=== PATIENT | female | born 1945 | race Caucasian/White ===

== ENCOUNTER 2018-07-05 17:21 | Emergency (ER) | payer SELFPAY ==
[2018-07-05 18:15] LABS: BASO % 0.5 % (0.0-2.0); EOS # 0.2 K/uL (0.0-0.7); EOS % 2.9 % (0.0-4.0); HEMOGLOBIN 11.4 g/dL (11.0-16.0); LYMPH # 1.1 K/uL (1.0-4.3); LYMPH % 19.8 % (20.0-40.0); MEAN CELL VOLUME 76.4 fL (81.0-99.0); MEAN CORPUSCULAR HEMOGLOBIN 25.6 pg (27.0-31.0); MEAN CORPUSCULAR HGB CONC 33.4 g/dL (33.0-37.0); MEAN PLATELET VOLUME 7.9 fL (7.2-11.7); MONO # 0.5 K/uL (0.0-0.8); MONO % 7.8 % (0.0-10.0); RBC 4.46 Mil/uL (3.80-5.20); RED CELL DISTRIBUTION WIDTH 14.9 % (11.5-14.5); WHITE BLOOD COUNT 5.8 K/uL (4.8-10.8)
[2018-07-05 18:33] LABS: ALB/GLOB RATIO 1.3 (1.0-2.1); ALT/SGPT 19 U/L (9-52); AST/SGOT 27 U/L (14-36); BLOOD UREA NITROGEN 17 mg/dL (7-17); CALCIUM 9.1 mg/dl (8.6-10.4); GFR NON-AFRICAN AMERICAN > 60
[2018-07-05 18:43] LABS: B-TYPE NATRIURETIC PEPTIDE 181 pg/mL (0-900)
--- NOTE | 2018-07-05 18:46 | C.PDOC ---
History Of Present Illness 72 y/o female,w/PMhx of heart disease with valve replacement and diabetes, presents to the ER complaining of headache and dry cough which has been present for the past 1 week. Patient states that she had an episode of cough with whit don sputum today. Patient reports that she has some discomfort in her chest. She notes that she traveled from [place] to the 2 weeks ago.Denies having SOB, fever, and chills. Time Seen by Provider: 07/05/18 17:40 Chief Complaint (Nursing): Chest Pain History Per: Patient History/Exam Limitations: no limitations Onset/Duration Of Symptoms: Days Current Symptoms Are (Timing): Still Present Severity: Moderate Past Medical History Reviewed: Historical Data, Nursing Documentation, Vital Signs Vital Signs: Last Vital Signs Temp 98.9 F 07/05/18 17:25 Pulse 81 07/05/18 17:25 Resp 20 07/05/18 17:25 BP 127/74 07/05/18 17:25 Pulse Ox 99 07/05/18 17:25 Primary Care Provider: Non [facility] Provider, - Medical History PMH: HTN, Hypercholesterolemia, Osteoporosis Denies: Chronic Kidney Disease Surgical History: No Surg Hx - [facility] Procedures CORONAR ARTERIOGR-2 CATH (11/26/14) RT & LT HEART ANGIOCARD (11/26/14) RT/LEFT HEART CARD CATH (11/26/14) Family History: States: No Known Family Hx - Social History Hx Alcohol Use: No Hx Substance Use: No - Immunization History Hx Tetanus Toxoid Vaccination: No Hx Influenza Vaccination: No Hx Pneumococcal Vaccination: No Review Of Systems Constitutional: Negative for: Fever, Chills Cardiovascular: Positive for: Other (chest discomfort). Negative for: Chest Pain, Palpitations Respiratory: Positive for: Cough. Negative for: Shortness of Breath Gastrointestinal: Negative for: Nausea, Vomiting, Abdominal Pain Neurological: Positive for: Headache Physical Exam - Physical Exam Appears: Non-toxic, No Acute Distress Skin: Normal Color, Warm, Dry Head: Atraumatic, Normacephalic Eye(s): bilateral: Normal Inspection Nose: Normal Oral Mucosa: Moist Neck: Supple Chest: Symmetrical Cardiovascular: Rhythm Regular, Murmur (systolic murmur) Respiratory: Normal Breath Sounds, No Rales, No Rhonchi, No Wheezing Gastrointestinal/Abdominal: Normal Exam, Soft, No Tenderness, No Guarding, No Rebound Neurological/Psych: Oriented x3, Normal Speech ED Course And Treatment - Laboratory Results Result Diagrams: 07/05/18 18:08 07/05/18 18:08 Lab Results: Total Bilirubin 0.3 mg/dL (0.2-1.3) 07/05/18 18:08 AST 27 U/L (14-36) 07/05/18 18:08 ALT 19 U/L (9-52) 07/05/18 18:08 Alkaline Phosphatase 113 U/L (38-126) 07/05/18 18:08 Total Protein 7.0 g/dL (6.3-8.3) 07/05/18 18:08 Albumin 4.0 g/dL (3.5-5.0) 07/05/18 18:08 Globulin 3.0 gm/dL (2.2-3.9) 07/05/18 18:08 Albumin/Globulin Ratio 1.3 (1.0-2.1) 07/05/18 18:08 Lab Interpretation: No Acute Changes ECG: Interpreted By Me ECG Rhythm: Sinus Rhythm ECG Interpretation: No Acute Changes O2 Sat by Pulse Oximetry: 99 (RA) Pulse Ox Interpretation: Normal - Radiology CXR: Viewed By Me, Read By Radiologist CXR Interpretation: Yes: Infiltrates (RUL) Progress Note: Patient treated in ED with Rocephin IVPB Reevaluation Time: 22:03 Reassessment Condition: Improved Medical Decision Making Medical Decision Making: Plan: --Labs --ECG --CXR Disposition Counseled Patient/Family Regarding: Studies Performed, Diagnosis, Need For Followup, Rx Given - Disposition Referrals: [facility] [Outside] Disposition: HOME/ ROUTINE Disposition Time: 22:03 Condition: GOOD Prescriptions: Azithromycin [Z-Drew] 250 mg PO DAILY #6 tab Instructions: Community-Acquired Pneumonia in Adults Forms: [employer] (Slovenian) Print Language: CITIZEN OF [place] - Clinical Impression Clinical Impression: Pneumonia - Scribe Statement The provider has reviewed the documentation as recorded by the Todd Mathews Provider Attestation: All medical record entries made by the Scribe were at my direction and personally dictated by me. I have reviewed the chart and agree that the record accurately reflects my personal performance of the history, physical exam, medical decision making, and the department course for this patient. I have also personally directed, reviewed, and agree with the discharge instructions and disposition.
--- NOTE | 2018-07-05 18:49 | RAD ---
HISTORY: SOB COMPARISON: Chest x-ray performed 07/24/14 TECHNIQUE: Chest, one view. FINDINGS: LUNGS: Mild venous congestion. Atelectasis and or pneumonia at the right mid lung zone. Small fluid within the fissure not excluded. No definite pneumothorax. Please note that chest x-ray has limited sensitivity for the detection of pulmonary masses. CARDIOVASCULAR: Median sternotomy wires. Heart size appears within normal limits. Dense atherosclerotic calcifications present. OSSEOUS STRUCTURES: Degenerative changes. VISUALIZED UPPER ABDOMEN: Unremarkable. OTHER FINDINGS: None. IMPRESSION: Atelectasis and or pneumonia at the right mid lung zone. Mild venous congestion. Small fluid within the fissure are not excluded.
[2018-07-05] MEDS ORDERED: cefTRIAXone IV 1 gm in Dextros 50 ML IVPB ONE (19:52)
[2018-07-05 21:01] VITALS: PULSE 76
[2018-07-05 22:08] VITALS: BP 105/40; RESP 19; TEMP 98.5; O2SAT 97
--- NOTE | 2018-07-06 11:04 | CARD ---
APPROVED REPORT Date of service: 07/05/2018 EKG Measurement Heart [id number] <Conclusion> Normal sinus rhythm Possible Left atrial enlargement Borderline ECG
== END 2018-07-05 22:35 | disposition home or self-care (01) ==
LOC: C.ER 17:21
DX: J18.9 Pneumonia, unspecified organism (principal)
CPT/HCPCS: 71045; 80053; 83880; 84484; 85025; 85378; 87040; 93005; 96374; 99285; J0696